=== PATIENT | male | born 1975 | race Caucasian/White ===

== ENCOUNTER 2017-03-22 16:09 | Inpatient (IN) ==
[2017-03-22] MEDS ORDERED: PROPOFOL 1,000 MG/100 ML BOTTLE IV ONE ×2 (16:10→18:04)
[2017-03-22] MEDS: PROPOFOL 1,000 MG/100 ML BOTTLE IV SCH ×3 (16:11→22:41)
[2017-03-22] MEDS ORDERED: VECURONIUM 10 MG VIAL IV ONE (16:46)
[2017-03-22] MEDS ORDERED: hydrALAZINE 20 MG/1 ML VIAL ONE (17:03)
[2017-03-22] MEDS ORDERED: hydrALAZINE 20 MG/1 ML VIAL IV STA (17:11)
[2017-03-22] MEDS ORDERED: VECURONIUM 10 MG VIAL IV STA (17:11)
[2017-03-22] MEDS ORDERED: hydrALAZINE 20 MG/1 ML VIAL IV PRN (17:30)
[2017-03-22] MEDS ORDERED: MIDAZOLAM 10 MG/2 ML VIAL ONE (17:33)
[2017-03-22] MEDS ORDERED: ONDANSETRON 4 MG/2 ML VIAL IV PRN (17:34)
[2017-03-22] MEDS ORDERED: MIDAZOLAM 10 MG/2 ML VIAL IV STA (17:41)
[2017-03-22] MEDS ORDERED: LORazepam INJ 40 MG in DEXTROSE 5% 30 ML IV SCH (18:00)
[2017-03-22 18:33] LABS: Apearance,Urine CLOUDY (Clear); Bacteria,Urine Occasional /HPF (Few); Bilirubin,Urine Negative (Negative); Blood, Urine Large mg/dL (Negative); Glucose,Urine (UA) Negative (Negative); Ketones,Urine Negative (Negative); Mucus,Urine Occasional /LPF (Occasional); Nitrite,Urine Negative (Negative); Protein,Urine Negative; RBC,Urine 31 /HPF (0-4); Squamous Epithelial Cell,Urine Occasional /HPF (0-10); Uric Acid Crystals,Urine Few /HPF (<1); Urine Color Straw (Yellow); Urine Specific Gravity 1.009 (1.001-1.035); Urine Urobilinogen < 2.0 EU/DL (0.2-1.0); WBC,Urine 2 /HPF (0-6)
[2017-03-22 19:57] LABS: Basophils % 0.1 % (0.0-0.8); Hematocrit 33.3 VOL% (42.0-52.0); Hemoglobin 10.9 GM/DL (14.0-18.0); Immature Granulocytes % 0.7 %; Immature Granulocytes Absolute 0.15 #; Lymphocytes # 1.4 10*3/uL (1.4-4.0); Lymphocytes % 6.3 % (21.2-54.2); Mean Corpuscular HGB Conc 32.7 GM/DL (32-36); Mean Corpuscular Hemoglobin 28 PG (27-34); Mean Corpuscular Volume 85.8 FL (87-102); Mean Platelet Volume 9.1 FL (9.6-12.0); Monocytes # 2.2 10*3/uL (0.11-0.8); Monocytes % 9.9 % (1.7-12.7); Neutrophils # 18.5 10*3/uL (1.4-7.4); Platelet Count 278 T/CUMM (130-400); Red Blood Count 3.88 MC/CUMM (3.8-5.5); Red Cell Distribution Width 15.4 % (9.3-17.3); White Blood Count 22.3 T/CUMM (4-12)
[2017-03-22 19:59] LABS: ABG HCO3 21.2 MMOL/L (20-26); ABG Oxygen Saturation 98.9 % (95-100); ABG PO2 251.5 MM HG (80-95); ABG TCO2 22.3 MMOL/L (23-27); Allen Test Positive; Pt O2 Delivery Device Ventilator
[2017-03-22 20:14] LABS: Lactic Acid 0.6 MMOL/L (0.4-2.0)
[2017-03-22 20:24] LABS: Alanine Aminotransferase 53 U/L (16-61); Alkaline Phosphatase 132 U/L (45-117); Aspartate Amino Transferase 88 U/L (0-37); Bilirubin,Total < 0.39 MG/DL (0.2-1.0); Blood Urea Nitrogen 22 MG/DL (7-18); Calcium 7.4 MG/DL (8.5-10.1); Glucose 128 MG/DL (74-106); Magnesium 2.4 MG/DL (1.8-2.4); Osmolality,Calculated 290.8 MOS/KG (273-304); Potassium 3.8 MMOL/L (3.5-5.1); Sodium 144 MMOL/L (136-145); Total Protein 5.7 G/DL (6.4-8.3)
[2017-03-22] MEDS: MIDAZOLAM 100 MG in SODIUM CHLORIDE 0.9% 80 ML IV SCH (21:31)
[2017-03-22] MEDS: PHENYTOIN 100 MG/2 ML VIAL IV SCH (21:34)
[2017-03-22] MEDS: ENOXAPARIN 40 MG/0.4 ML SYRINGE SUBCUT SCH (21:36)
[2017-03-22] MEDS: PIPERACILLIN/TAZOBACTAM 3,375 MG in SODIUM CHLORIDE 0.9% 100 ML IV SCH (21:36)
[2017-03-22] MEDS: LACOSAMIDE INJ 100 MG in SODIUM CHLORIDE 0.9% 50 ML IV SCH (21:37)
[2017-03-22 21:54] LABS: Lymphocytes 8 % (20-55); Metamyelocytes 1 %; Platelet Estimate Normal; Segmented Neutrophils 88 % (50-85); Total Cells Counted 100
[2017-03-23] MEDS: VANCOMYCIN INJ 1,250 MG in SODIUM CHLORIDE 0.45% 250 ML IV SCH ×2 (00:44→13:12)
[2017-03-23] MEDS: fentaNYL 100 MCG/2 ML VIAL IV PRN ×3 (00:45→22:57)
[2017-03-23] MEDS: PROPOFOL 1,000 MG/100 ML BOTTLE IV SCH ×8 (01:12→23:31)
[2017-03-23 03:53] LABS: Allen Test Positive; Pt O2 Delivery Device Ventilator
[2017-03-23 03:54] LABS: ABG Base Excess -2.6 MMOL/L (-2.5-2.5); ABG HCO3 22.3 MMOL/L (20-26); ABG Oxygen Saturation 99.9 % (95-100); ABG PCO2 38.1 MM HG (35-48); ABG PH 7.374 (7.35-7.45); ABG TCO2 19.9 MMOL/L (23-27)
[2017-03-23] MEDS: PIPERACILLIN/TAZOBACTAM 3,375 MG in SODIUM CHLORIDE 0.9% 100 ML IV SCH ×3 (03:56→21:13)
[2017-03-23] MEDS: PHENYTOIN 100 MG/2 ML VIAL IV SCH ×3 (03:56→21:14)
[2017-03-23 04:45] LABS: Basophils # 0.1 10*3/uL (0.0-0.2); Basophils % 0.3 % (0.0-0.8); Eosinophils % 0.1 % (0.00-10.9); Hematocrit 34.6 VOL% (42.0-52.0); Hemoglobin 11.2 GM/DL (14.0-18.0); Immature Granulocytes % 0.6 %; Immature Granulocytes Absolute 0.11 #; Lymphocytes # 2.2 10*3/uL (1.4-4.0); Lymphocytes % 12.2 % (21.2-54.2); Mean Corpuscular HGB Conc 32.4 GM/DL (32-36); Mean Corpuscular Hemoglobin 28 PG (27-34); Mean Corpuscular Volume 87.6 FL (87-102); Mean Platelet Volume 9.6 FL (9.6-12.0); Monocytes # 2.3 10*3/uL (0.11-0.8); Monocytes % 12.8 % (1.7-12.7); Neutrophils # 13.3 10*3/uL (1.4-7.4); Platelet Count 305 T/CUMM (130-400); Red Blood Count 3.95 MC/CUMM (3.8-5.5); Red Cell Distribution Width 15.9 % (9.3-17.3)
[2017-03-23 05:21] LABS: Albumin 3.1 G/DL (3.4-5.0); Bilirubin,Total 0.4 MG/DL (0.2-1.0); Osmolality,Calculated 293.4 MOS/KG (273-304); Potassium 3.9 MMOL/L (3.5-5.1); Total Protein 5.8 G/DL (6.4-8.3)
[2017-03-23] MEDS: ENOXAPARIN 40 MG/0.4 ML SYRINGE SUBCUT SCH ×2 (10:43→21:19)
[2017-03-23] MEDS: NEBIVOLOL 10 MG TABLET PO SCH (10:43)
[2017-03-23] MEDS: PANTOPRAZOLE 40 MG VIAL IV SCH (10:43)
[2017-03-23] MEDS: LACOSAMIDE INJ 100 MG in SODIUM CHLORIDE 0.9% 50 ML IV SCH ×2 (10:44→21:22)
[2017-03-23] MEDS: MIDAZOLAM 100 MG in SODIUM CHLORIDE 0.9% 80 ML IV SCH (21:23)
[2017-03-24] MEDS: VANCOMYCIN INJ 1,250 MG in SODIUM CHLORIDE 0.45% 250 ML IV SCH ×3 (02:45→23:29)
[2017-03-24] MEDS: PROPOFOL 1,000 MG/100 ML BOTTLE IV SCH ×7 (02:46→23:08)
[2017-03-24 03:34] LABS: ABG Base Excess -0.2 MMOL/L (-2.5-2.5); ABG HCO3 24.3 MMOL/L (20-26); ABG Oxygen Saturation 99.7 % (95-100); ABG PCO2 40.5 MM HG (35-48); ABG PH 7.393 (7.35-7.45); ABG TCO2 22.3 MMOL/L (23-27); Allen Test Positive; Pt O2 Delivery Device Ventilator
[2017-03-24 05:21] LABS: Basophils % 0.4 % (0.0-0.8); Eosinophils # 0.1 10*3/uL (0.0-0.87); Eosinophils % 0.5 % (0.00-10.9); Hematocrit 32.5 VOL% (42.0-52.0); Hemoglobin 10.5 GM/DL (14.0-18.0); Immature Granulocytes % 0.5 %; Immature Granulocytes Absolute 0.05 #; Lymphocytes # 1.8 10*3/uL (1.4-4.0); Lymphocytes % 17.2 % (21.2-54.2); Mean Corpuscular HGB Conc 32.3 GM/DL (32-36); Mean Corpuscular Hemoglobin 29 PG (27-34); Mean Platelet Volume 9.5 FL (9.6-12.0); Monocytes # 1.1 10*3/uL (0.11-0.8); Monocytes % 10.8 % (1.7-12.7); Neutrophils # 7.4 10*3/uL (1.4-7.4); Neutrophils % 70.6 % (38.7-73.9); Platelet Count 273 T/CUMM (130-400); Red Blood Count 3.65 MC/CUMM (3.8-5.5); Red Cell Distribution Width 15.9 % (9.3-17.3); White Blood Count 10.5 T/CUMM (4-12)
[2017-03-24] MEDS: PIPERACILLIN/TAZOBACTAM 3,375 MG in SODIUM CHLORIDE 0.9% 100 ML IV SCH ×3 (05:29→21:49)
[2017-03-24 06:01] LABS: Alanine Aminotransferase 148 U/L (16-61); Albumin 2.9 G/DL (3.4-5.0); Alkaline Phosphatase 105 U/L (45-117); Aspartate Amino Transferase 157 U/L (0-37); Bilirubin,Total < 0.39 MG/DL (0.2-1.0); Blood Urea Nitrogen 25 MG/DL (7-18); Glucose 104 MG/DL (74-106); Magnesium 2.3 MG/DL (1.8-2.4); Osmolality,Calculated 295.4 MOS/KG (273-304); Potassium 3.6 MMOL/L (3.5-5.1); Sodium 147 MMOL/L (136-145); Total Protein 5.8 G/DL (6.4-8.3)
[2017-03-24] MEDS: PHENYTOIN 100 MG/2 ML VIAL IV SCH ×6 (06:23→23:29)
[2017-03-24] MEDS: PANTOPRAZOLE 40 MG VIAL IV SCH (09:17)
[2017-03-24] MEDS: NEBIVOLOL 10 MG TABLET PO SCH (09:18)
[2017-03-24] MEDS: ENOXAPARIN 40 MG/0.4 ML SYRINGE SUBCUT SCH ×2 (09:18→21:07)
[2017-03-24] MEDS: LACOSAMIDE INJ 100 MG in SODIUM CHLORIDE 0.9% 50 ML IV SCH ×2 (09:48→21:49)
[2017-03-24] MEDS: SUCRALFATE 1 GM/10 ML UDCUP NG SCH ×3 (11:16→23:29)
[2017-03-24] MEDS: MIDAZOLAM 100 MG in SODIUM CHLORIDE 0.9% 80 ML IV SCH (20:01)
[2017-03-24] MEDS: fentaNYL 100 MCG/2 ML VIAL IV PRN (21:48)
[2017-03-25] MEDS: PROPOFOL 1,000 MG/100 ML BOTTLE IV SCH ×2 (02:28→05:56)
[2017-03-25] MEDS: PIPERACILLIN/TAZOBACTAM 3,375 MG in SODIUM CHLORIDE 0.9% 100 ML IV SCH ×3 (04:00→19:54)
[2017-03-25 04:23] LABS: ABG Base Excess 1.2 MMOL/L (-2.5-2.5); ABG HCO3 25.5 MMOL/L (20-26); ABG Oxygen Saturation 99.6 % (95-100); ABG PCO2 36.9 MM HG (35-48); ABG PH 7.442 (7.35-7.45); ABG TCO2 22.6 MMOL/L (23-27)
[2017-03-25 04:49] LABS: Basophils % 0.4 % (0.0-0.8); Eosinophils # 0.1 10*3/uL (0.0-0.87); Hematocrit 32.9 VOL% (42.0-52.0); Hemoglobin 10.5 GM/DL (14.0-18.0); Immature Granulocytes % 0.4 %; Immature Granulocytes Absolute 0.04 #; Lymphocytes # 1.7 10*3/uL (1.4-4.0); Lymphocytes % 16.8 % (21.2-54.2); Mean Corpuscular HGB Conc 31.9 GM/DL (32-36); Mean Corpuscular Hemoglobin 28 PG (27-34); Mean Corpuscular Volume 88.4 FL (87-102); Mean Platelet Volume 9.9 FL (9.6-12.0); Monocytes # 1.2 10*3/uL (0.11-0.8); Monocytes % 11.3 % (1.7-12.7); Neutrophils # 7.1 10*3/uL (1.4-7.4); Neutrophils % 70.1 % (38.7-73.9); Platelet Count 294 T/CUMM (130-400); Red Blood Count 3.72 MC/CUMM (3.8-5.5); White Blood Count 10.2 T/CUMM (4-12)
[2017-03-25 05:38] LABS: Albumin 3.1 G/DL (3.4-5.0); Bilirubin,Total 0.6 MG/DL (0.2-1.0); Calcium 8.4 MG/DL (8.5-10.1); Magnesium 2.1 MG/DL (1.8-2.4); Osmolality,Calculated 299.1 MOS/KG (273-304); Potassium 3.5 MMOL/L (3.5-5.1)
[2017-03-25] MEDS: SUCRALFATE 1 GM/10 ML UDCUP NG SCH ×3 (05:51→17:44)
[2017-03-25] MEDS: fentaNYL 100 MCG/2 ML VIAL IV PRN ×3 (06:04→19:55)
[2017-03-25] MEDS: LORazepam 2 MG/1 ML VIAL IV PRN ×4 (06:16→19:55)
[2017-03-25] MEDS: HALOPERIDOL 5 MG/ML AMP IV PRN ×2 (09:16→18:09)
[2017-03-25] MEDS: PHENYTOIN 100 MG/2 ML VIAL IV SCH ×2 (09:16→15:59)
[2017-03-25] MEDS: LACOSAMIDE INJ 100 MG in SODIUM CHLORIDE 0.9% 50 ML IV SCH ×2 (10:03→21:51)
[2017-03-25] MEDS: ENOXAPARIN 40 MG/0.4 ML SYRINGE SUBCUT SCH (10:06)
[2017-03-25] MEDS: PANTOPRAZOLE 40 MG VIAL IV SCH (10:07)
[2017-03-25] MEDS: NEBIVOLOL 10 MG TABLET PO SCH (10:26)
[2017-03-25] MEDS: VANCOMYCIN INJ 1,250 MG in SODIUM CHLORIDE 0.45% 250 ML IV SCH ×2 (12:32→20:10)
[2017-03-26] MEDS: PHENYTOIN 100 MG/2 ML VIAL IV SCH ×3 (00:21→18:00)
[2017-03-26] MEDS: LORazepam 2 MG/1 ML VIAL IV PRN ×4 (00:28→21:06)
[2017-03-26] MEDS: SUCRALFATE 1 GM/10 ML UDCUP NG SCH ×4 (00:29→17:58)
[2017-03-26 03:38] LABS: Basophils % 0.3 % (0.0-0.8); Eosinophils # 0.1 10*3/uL (0.0-0.87); Eosinophils % 0.5 % (0.00-10.9); Hematocrit 35.2 VOL% (42.0-52.0); Hemoglobin 11.7 GM/DL (14.0-18.0); Immature Granulocytes % 0.6 %; Immature Granulocytes Absolute 0.07 #; Lymphocytes # 1.9 10*3/uL (1.4-4.0); Lymphocytes % 15.3 % (21.2-54.2); Mean Corpuscular HGB Conc 33.2 GM/DL (32-36); Mean Corpuscular Hemoglobin 28 PG (27-34); Mean Corpuscular Volume 84.8 FL (87-102); Mean Platelet Volume 9.7 FL (9.6-12.0); Monocytes # 1.3 10*3/uL (0.11-0.8); Monocytes % 10.6 % (1.7-12.7); Neutrophils # 9.2 10*3/uL (1.4-7.4); Neutrophils % 72.7 % (38.7-73.9); Platelet Count 310 T/CUMM (130-400); Red Blood Count 4.15 MC/CUMM (3.8-5.5); Red Cell Distribution Width 15.4 % (9.3-17.3); White Blood Count 12.7 T/CUMM (4-12)
[2017-03-26] MEDS ORDERED: ALBUTEROL/IPRATROPIUM 3 ML NEB RESP TX PRN (03:50)
[2017-03-26 04:18] LABS: % Iron Saturation 50.5 % (18-50); Ferritin 27.4 ng/ml (26-388)
[2017-03-26 04:30] LABS: Albumin 3.3 G/DL (3.4-5.0); Bilirubin,Total 0.5 MG/DL (0.2-1.0); Calcium 8.4 MG/DL (8.5-10.1); Osmolality,Calculated 286.7 MOS/KG (273-304); Potassium 3.2 MMOL/L (3.5-5.1); Total Protein 6.7 G/DL (6.4-8.3)
[2017-03-26] MEDS: VANCOMYCIN INJ 1,250 MG in SODIUM CHLORIDE 0.45% 250 ML IV SCH ×3 (05:08→21:06)
[2017-03-26] MEDS: PIPERACILLIN/TAZOBACTAM 3,375 MG in SODIUM CHLORIDE 0.9% 100 ML IV SCH ×3 (05:08→22:32)
[2017-03-26] MEDS: NEBIVOLOL 10 MG TABLET PO SCH (08:04)
[2017-03-26] MEDS: PANTOPRAZOLE 40 MG VIAL IV SCH (08:08)
[2017-03-26] MEDS: ENOXAPARIN 40 MG/0.4 ML SYRINGE SUBCUT SCH (08:14)
[2017-03-26] MEDS ORDERED: ENOXAPARIN 40 MG/0.4 ML SYRINGE SUBCUT SCH (09:00)
[2017-03-26] MEDS: LACOSAMIDE INJ 100 MG in SODIUM CHLORIDE 0.9% 50 ML IV SCH ×2 (12:06→20:23)
[2017-03-27] MEDS: PHENYTOIN 100 MG/2 ML VIAL IV SCH ×2 (00:37→08:09)
[2017-03-27] MEDS: SUCRALFATE 1 GM/10 ML UDCUP NG SCH ×3 (00:37→11:59)
[2017-03-27] MEDS: VANCOMYCIN INJ 1,250 MG in SODIUM CHLORIDE 0.45% 250 ML IV SCH (05:33)
[2017-03-27] MEDS: PIPERACILLIN/TAZOBACTAM 3,375 MG in SODIUM CHLORIDE 0.9% 100 ML IV SCH ×2 (06:37→13:54)
[2017-03-27] MEDS: ENOXAPARIN 40 MG/0.4 ML SYRINGE SUBCUT SCH (08:09)
[2017-03-27] MEDS: PANTOPRAZOLE 40 MG VIAL IV SCH (08:09)
[2017-03-27] MEDS: NEBIVOLOL 10 MG TABLET PO SCH (08:09)
[2017-03-27] MEDS: LACOSAMIDE INJ 100 MG in SODIUM CHLORIDE 0.9% 50 ML IV SCH (09:06)
[2017-03-27] MEDS: LORazepam 2 MG/1 ML VIAL IV PRN (09:15)
[2017-03-27 09:27] LABS: Hepatitis A Ab IgM Result Negative (Negative)
[2017-03-27 09:28] LABS: Hepatitis B Core IgM Quant 0.08 Index; Hepatitis B Core IgM Result Negative (Negative); Hepatitis B Surface Ag Result Negative (Negative)
[2017-03-27] MEDS ORDERED: FLUCONAZOLE INJ 200 MG in PREMIX 1 EACH IV SCH (10:00)
[2017-03-27] MEDS: HALOPERIDOL 5 MG/ML AMP IV PRN (10:21)
[2017-03-27 11:36] VITALS: BP 146/93
== END 2017-03-27 15:46 | disposition home or self-care (01) | DRG 871 ==
LOC: EDUNIT# → EDBD → N.ED 16:09 → N.EDINP 17:25 → SUATTDRO 17:25 → N.ICU 18:09 → N.3E 03-26 13:37
PROVIDERS: ADMIT Internal Medicine Infectious Disease; ATTEND Family Medicine

== ENCOUNTER 2017-09-05 11:40 | Inpatient (IN) ==
[2017-09-05 13:37] LABS: Basophils % 0.2 % (0.0-0.8); Eosinophils # 0.1 10*3/uL (0.0-0.87); Hematocrit 18.4 VOL% (42.0-52.0); Immature Granulocytes % 0.3 %; Immature Granulocytes Absolute 0.03 #; Lymphocytes % 22.7 % (21.2-54.2); Mean Corpuscular HGB Conc 27.7 GM/DL (32-36); Mean Corpuscular Hemoglobin 21 PG (27-34); Mean Corpuscular Volume 74.5 FL (87-102); Mean Platelet Volume 10.4 FL (9.6-12.0); Monocytes # 0.9 10*3/uL (0.11-0.8); Monocytes % 10.1 % (1.7-12.7); NRBC # 0.03 10*3/uL; Neutrophils # 5.7 10*3/uL (1.4-7.4); Neutrophils % 65.7 % (38.7-73.9); Platelet Count 325 T/CUMM (130-400); Red Blood Count 2.47 MC/CUMM (3.8-5.5); Red Cell Distribution Width 15.8 % (9.3-17.3); White Blood Count 8.7 T/CUMM (4-12)
[2017-09-05 13:42] LABS: Hemoglobin 5.1 GM/DL (14.0-18.0)
[2017-09-05 13:57] LABS: Alanine Aminotransferase 17 U/L (16-61); Albumin 2.9 G/DL (3.4-5.0); Alkaline Phosphatase 136 U/L (45-117); Aspartate Amino Transferase 6 U/L (0-37); Bilirubin,Total < 0.39 MG/DL (0.2-1.0); Blood Urea Nitrogen 12 MG/DL (7-18); Calcium 8.2 MG/DL (8.5-10.1); Glucose 116 MG/DL (74-106); Lactic Acid 1.2 MMOL/L (0.4-2.0); Osmolality,Calculated 275.7 MOS/KG (273-304); Potassium 4.2 MMOL/L (3.5-5.1); Sodium 138 MMOL/L (136-145); Total Protein 6.5 G/DL (6.4-8.3)
[2017-09-05 14:09] LABS: PT Patient Result 10.1 SECS
[2017-09-05 14:28] LABS: Apearance,Urine CLEAR (Clear); Bilirubin,Urine Negative (Negative); Blood, Urine Negative (Negative); Glucose,Urine (UA) Negative (Negative); Ketones,Urine Negative (Negative); Nitrite,Urine Negative (Negative); Protein,Urine Negative; RBC,Urine <1 /HPF (0-4); Urine Color Yellow (Yellow); Urine Specific Gravity 1.006 (1.001-1.035); Urine Urobilinogen < 2.0 EU/DL (0.2-1.0); WBC,Urine <1 /HPF (0-6)
[2017-09-05 14:38] LABS: Barbiturates Screen,Urine Negative (Negative); Benzodiazepines Screen,Urine Positive (Negative); Cannabinoid Screen,Urine Negative (Negative); Opiate Screen,Urine Negative (Negative); Phencyclidine Screen,Urine Negative (Negative)
[2017-09-05 14:50] LABS: Anisocytosis 1+; Hypochromasia 2+; Microcytosis 1+; Ovalocytes 1+; Poikilocytosis 1+; Tear Drop Cells Slight
[2017-09-05] MEDS ORDERED: NICOTINE 14 MG/24 HR PATCH TRANSDERM STA (15:41)
[2017-09-05] MEDS ORDERED: PROMETHAZINE 25 MG/1 ML VIAL IM PRN (17:28)
[2017-09-05] MEDS ORDERED: NICOTINE 21 MG/24 HR PATCH TRANSDERM PRN (17:28)
[2017-09-05] MEDS ORDERED: MORPHINE 4 MG/1 ML VIAL IV PRN (17:28)
[2017-09-05] MEDS ORDERED: SODIUM CHLORIDE 0.9% 1,000 ML IV PRN ×2 (17:34→19:32)
[2017-09-05] MEDS ORDERED: guaiFENesin/DM ER 600-30 MG TABLET PO PRN (17:58)
[2017-09-05] MEDS: METOPROLOL TARTRATE 25 MG TABLET PO SCH (20:18)
[2017-09-05] MEDS: PHENYTOIN ER 100 MG CAPSULE PO SCH (20:18)
[2017-09-05] MEDS: PARoxetine 20 MG TABLET PO SCH (20:19)
[2017-09-05] MEDS: LACOSAMIDE 50 MG TABLET PO SCH (20:19)
[2017-09-05] MEDS: PANTOPRAZOLE 40 MG VIAL IV SCH (20:20)
[2017-09-05] MEDS: SODIUM CHLORIDE 0.9% 1,000 ML IV SCH (20:24)
[2017-09-05] MEDS ORDERED: PREGABALIN 50 MG CAPSULE PO SCH (21:00)
[2017-09-06] MEDS: SODIUM CHLORIDE 0.9% 1,000 ML IV SCH ×2 (02:37→18:44)
[2017-09-06 07:14] LABS: Basophils % 0.5 % (0.0-0.8); Eosinophils # 0.1 10*3/uL (0.0-0.87); Hematocrit 24.6 VOL% (42.0-52.0); Hemoglobin 7.6 GM/DL (14.0-18.0); Immature Granulocytes % 0.3 %; Immature Granulocytes Absolute 0.02 #; Lymphocytes # 2.3 10*3/uL (1.4-4.0); Mean Corpuscular HGB Conc 30.9 GM/DL (32-36); Mean Corpuscular Hemoglobin 23 PG (27-34); Mean Corpuscular Volume 75.5 FL (87-102); Mean Platelet Volume 10.7 FL (9.6-12.0); Monocytes # 0.6 10*3/uL (0.11-0.8); Monocytes % 7.9 % (1.7-12.7); NRBC # 0.02 10*3/uL; Neutrophils # 4.9 10*3/uL (1.4-7.4); Neutrophils % 61.3 % (38.7-73.9); Platelet Count 302 T/CUMM (130-400); Red Blood Count 3.26 MC/CUMM (3.8-5.5)
[2017-09-06 07:45] LABS: Alanine Aminotransferase 14 U/L (16-61); Albumin 3.1 G/DL (3.4-5.0); Alkaline Phosphatase 146 U/L (45-117); Aspartate Amino Transferase 6 U/L (0-37); Bilirubin,Total < 0.39 MG/DL (0.2-1.0); Blood Urea Nitrogen 10 MG/DL (7-18); Calcium 8.4 MG/DL (8.5-10.1); Glucose 90 MG/DL (74-106); Osmolality,Calculated 279.3 MOS/KG (273-304); Potassium 4.4 MMOL/L (3.5-5.1); Sodium 141 MMOL/L (136-145); Total Protein 6.4 G/DL (6.4-8.3)
[2017-09-06] MEDS ORDERED: PHENYTOIN ER 100 MG CAPSULE PO SCH (09:00)
[2017-09-06] MEDS ORDERED: PANTOPRAZOLE 40 MG TABLET PO SCH (09:00)
[2017-09-06] MEDS ORDERED: SODIUM CHLORIDE 0.9% 1,000 ML IV PRN (09:13)
[2017-09-06] MEDS: LACOSAMIDE 50 MG TABLET PO SCH ×2 (09:38→21:40)
[2017-09-06] MEDS: PANTOPRAZOLE 40 MG VIAL IV SCH ×2 (09:38→21:40)
[2017-09-06] MEDS: PIPERACILLIN/TAZOBACTAM 3,375 MG in SODIUM CHLORIDE 0.9% 100 ML IV SCH ×2 (09:39→18:43)
[2017-09-06] MEDS ORDERED: PREGABALIN 100 MG CAPSULE PO ONE (16:16)
[2017-09-06] MEDS: PHENYTOIN ER 100 MG CAPSULE PO SCH ×2 (16:18→21:39)
[2017-09-06] MEDS ORDERED: IBUPROFEN 800 MG TABLET PO PRN (16:20)
[2017-09-06] MEDS ORDERED: MORPHINE 4 MG/1 ML VIAL IV PRN (16:23)
[2017-09-06] MEDS ORDERED: PREGABALIN 100 MG CAPSULE PO SCH (21:00)
[2017-09-06] MEDS: PARoxetine 20 MG TABLET PO SCH (21:39)
[2017-09-06] MEDS: METOPROLOL TARTRATE 25 MG TABLET PO SCH (21:40)
[2017-09-06] MEDS: PREGABALIN 100 MG CAPSULE PO SCH (21:40)
[2017-09-07] MEDS: PIPERACILLIN/TAZOBACTAM 3,375 MG in SODIUM CHLORIDE 0.9% 100 ML IV SCH ×2 (01:33→09:02)
[2017-09-07] MEDS: SODIUM CHLORIDE 0.9% 1,000 ML IV SCH ×3 (01:34→09:03)
[2017-09-07 05:24] LABS: Basophils # 0.1 10*3/uL (0.0-0.2); Eosinophils # 0.1 10*3/uL (0.0-0.87); Eosinophils % 2.1 % (0.00-10.9); Hematocrit 29.2 VOL% (42.0-52.0); Hemoglobin 8.9 GM/DL (14.0-18.0); Immature Granulocytes % 0.3 %; Immature Granulocytes Absolute 0.02 #; Lymphocytes # 2.1 10*3/uL (1.4-4.0); Lymphocytes % 34.2 % (21.2-54.2); Mean Corpuscular HGB Conc 30.5 GM/DL (32-36); Mean Corpuscular Hemoglobin 23 PG (27-34); Mean Corpuscular Volume 76.6 FL (87-102); Monocytes # 0.7 10*3/uL (0.11-0.8); Monocytes % 11.8 % (1.7-12.7); NRBC # 0.02 10*3/uL; Neutrophils # 3.1 10*3/uL (1.4-7.4); Neutrophils % 50.6 % (38.7-73.9); Platelet Count 277 T/CUMM (130-400); Red Blood Count 3.81 MC/CUMM (3.8-5.5); Red Cell Distribution Width 17.2 % (9.3-17.3); White Blood Count 6.2 T/CUMM (4-12)
[2017-09-07 06:01] LABS: Alanine Aminotransferase 15 U/L (16-61); Albumin 2.9 G/DL (3.4-5.0); Alkaline Phosphatase 138 U/L (45-117); Aspartate Amino Transferase 9 U/L (0-37); Bilirubin,Total < 0.39 MG/DL (0.2-1.0); Blood Urea Nitrogen 12 MG/DL (7-18); Calcium 8.4 MG/DL (8.5-10.1); Glucose 91 MG/DL (74-106); Osmolality,Calculated 282.1 MOS/KG (273-304); Potassium 4.5 MMOL/L (3.5-5.1); Sodium 142 MMOL/L (136-145); Total Protein 6.6 G/DL (6.4-8.3)
[2017-09-07] MEDS: LACOSAMIDE 50 MG TABLET PO SCH (12:29)
[2017-09-07] MEDS: PREGABALIN 100 MG CAPSULE PO SCH (12:30)
[2017-09-07] MEDS: PHENYTOIN ER 100 MG CAPSULE PO SCH (12:30)
[2017-09-07] MEDS: PANTOPRAZOLE 40 MG VIAL IV SCH (12:30)
[2017-09-07] MEDS ORDERED: IRON SUCROSE 200 MG in SODIUM CHLORIDE 0.9% 100 ML IV ONE (12:31)
[2017-09-07 15:37] VITALS: BP 126/60
== END 2017-09-07 16:45 | disposition home or self-care (01) | DRG 378 ==
LOC: N.ED 11:40 → N.EDINP 17:28 → N.4E 19:15
PROVIDERS: ADMIT Internal Medicine; ATTEND Internal Medicine